=== PATIENT | female | born 1935 | race Caucasian/White ===

== ENCOUNTER 2018-05-21 02:08 | Emergency (ER) | payer OTHER, MEDICARE ==
[2018-05-21 02:16] VITALS: BMI 24.6
--- NOTE | 2018-05-21 02:28 | PDOC ---
History of Present Illness - General Chief Complaint: Injury Stated Complaint: FALL Time Seen by Provider: 05/21/18 02:28 - History of Present Illness Initial Comments: 05/21/18 03:14 Ms. Benoit is an 83 yo female w/ pmh of Hypothyroidism, HTN, HLD, depression, on aspirin and warfarin for unknown reason who presents to ED s/p fall at [facility] where patient is a resident. She went to the bathroom to use the bathroom without assistance and fell. Denies hitting her head or LOC. Patient is on warfarin and aspirin. Currently has a headache and neck pain. The patient denies chest pain, shortness of breath, headache and dizziness. Denies fever, chills, nausea, vomit, diarrhea and constipation. Denies dysuria, frequency, urgency and hematuria. Allergies: NKDA Past History - Suicide/Smoking/Psychosocial Hx Smoking History: Never smoked Have you smoked in the past 12 months: No Information on smoking cessation initiated: No Hx Alcohol Use: No Review of Systems - Review of Systems Comments:: 05/21/18 03:19 GENERAL/CONSTITUTIONAL: No fever or chills. No weakness. HEAD, EYES, EARS, NOSE AND THROAT: No change in vision. No ear pain or discharge. No sore throat. CARDIOVASCULAR: No chest pain or shortness of breath RESPIRATORY: No cough, wheezing, or hemoptysis. GASTROINTESTINAL: No nausea, vomiting, diarrhea or constipation. GENITOURINARY: No dysuria, frequency, or change in urination. MUSCULOSKELETAL: +Right hip pain. No neck or back pain. SKIN: No rash NEUROLOGIC: +Current headache, no vertigo, loss of consciousness, or change in strength/sensation. ENDOCRINE: No increased thirst. No abnormal weight change HEMATOLOGIC/LYMPHATIC: No anemia, easy bleeding, or history of blood clots. ALLERGIC/IMMUNOLOGIC: No hives or skin allergy. *Physical Exam - Vital Signs Last Vital Signs Temp Pulse Resp BP Pulse Ox 99.2 F 67 20 128/66 88 L 05/21/18 02:09 05/21/18 02:09 05/21/18 02:09 05/21/18 02:09 05/21/18 02:09 - Physical Exam Comments: 05/21/18 03:19 GENERAL: Awake, alert, and fully oriented, in no acute distress HEAD: No signs of trauma, normocephalic, atraumatic EYES: PERRLA, EOMI, sclera anicteric, conjunctiva clear ENT: Auricles normal inspection, hearing grossly normal, nares patent, oropharynx clear without exudates. Moist mucosa NECK: Normal ROM, supple, no lymphadenopathy, JVD, or masses LUNGS: No distress, speaks full sentences, clear to auscultation bilaterally HEART: Regular rate and rhythm, normal S1 and S2, no murmurs, rubs or gallops, peripheral pulses normal and equal bilaterally. ABDOMEN: Soft, nontender, normoactive bowel sounds. No guarding, no rebound. No masses EXTREMITIES: +Approx. 10cm ecchymosis noted to R hip. Otherwise normal inspection, Normal range of motion, no edema. No clubbing or cyanosis. NEUROLOGICAL: Cranial nerves II through XII grossly intact. Normal speech, no focal sensorimotor deficits SKIN: Warm, Dry, normal turgor, no rashes or lesions noted. ED Treatment Course - LABORATORY CBC & Chemistry Diagram: 05/21/18 03:45 05/21/18 03:45 Medical Decision Making - Medical Decision Making 05/21/18 06:00 Ms. Benoit is an 83 yo female w/ pmh as described who presents for evaluation after fall earlier today. Patient workup started including head/c-spine CT, EKG , and pelvic /chest XR as well as labs as below. Labs grossly wnl, EKG non- concerning, CXR / Pelvic XR / Head/C-spine CT all negative for acute process. Patient resting comfortably. Will discharge to home for further non-emergent outpatient evaluation. Laboratory Results - last 24 hr 05/21/18 05/21/18 05/21/18 03:45 03:45 03:45 WBC 8.4 RBC 4.29 Hgb 12.0 Hct 37.0 MCV 86.4 MCH 27.9 MCHC 32.4 RDW 17.5 H Plt Count 359 MPV 9.7 Absolute Neuts (auto) 6.8 Neutrophils % 80.7 Lymphocytes % 9.5 Monocytes % 6.9 Eosinophils % 2.5 Basophils % 0.4 Nucleated RBC % 0 PT with INR 23.60 H INR 2.09 H PTT (Actin FS) 40.2 H Sodium 144 Potassium 3.7 Chloride 108 H Carbon Dioxide 28 Anion Gap 8 BUN 20 H Creatinine 0.8 Creat Clearance w eGFR > 60 Random Glucose 106 Calcium 8.6 Total Bilirubin 0.3 AST 27 ALT 42 Alkaline Phosphatase 74 Creatine Kinase 62 Troponin I 0.03 Total Protein 5.7 L Albumin 3.1 L *DC/Admit/Observation/Transfer Diagnosis at time of Disposition: Fall Qualifiers: Encounter type: initial encounter Qualified Code(s): W19.XXXA - Unspecified fall, initial encounter - Discharge Dispostion Disposition: HOME - Referrals Referrals: Rianna Blas [Primary Care Provider] - - Patient Instructions Printed Discharge Instructions: How to Prevent Falls Additional Instructions: Please follow-up with primary care provider for further evaluation in 1-2 days. Return to ER if any pain, fever, chills, or other concerning symptoms. - Post Discharge Activity
--- NOTE | 2018-05-21 03:21 | PDOC ---
Attending Attestation - HPI HPI: 05/21/18 03:21 The patient is an 83-year-old female, DNR, with a past medical history of HTN, hyperlipidemia, hypothyroidism, and depression, who presents to the ED s/p fall today. The patient states that she got up to use the bathroom without assistance and lost her footing. She does not recall how she fell but denies any head trauma or loss of consciousness. She is now complaining of headache and neck pain. The patient reports frequency. The patient denies any fever, chills, nausea, vomiting, diarrhea, and abdominal pain. Denies any chest pain or shortness of breath. Allergies: NKA PCP: Dr. Blas - Physicial Exam PE: 05/21/18 03:34 GENERAL: Well developed, well nourished. Awake and alert. No acute distress. HEENT: Normocephalic, atraumatic. PERRLA, EOMI. No conjunctival pallor. Sclera are non- icteric. Moist mucous membranes. Oropharynx is clear. NECK: Supple. Full ROM. No JVD. Carotid pulses 2+ and symmetric, without bruits. No thyromegaly. No lymphadenopathy. CARDIOVASCULAR: Regular rate and rhythm. No murmurs, rubs, or gallops. Distal pulses are 2+ and symmetric. PULMONARY: No evidence of respiratory distress. Lungs clear to auscultation bilaterally. No wheezing, rales or rhonchi. ABDOMINAL: Soft. Non-tender. Non-distended. No rebound or guarding. No organomegaly. Normoactive bowel sounds. MUSCULOSKELETAL Normal range of motion at all joints. No bony deformities or tenderness. No CVA tenderness. EXTREMITIES: No cyanosis. No clubbing. No edema. No calf tenderness. SKIN: Warm and dry. Normal capillary refill. No rashes. No jaundice. NEUROLOGICAL: Alert, awake, appropriate. PSYCHIATRIC: Cooperative. Good eye contact. Appropriate mood and affect. <Jen May - Last Filed: 05/21/18 03:25> - Resident Resident Name: Jose Maria James - ED Attending Attestation I have performed the following: I have examined & evaluated the patient, The case was reviewed & discussed with the resident, I agree w/resident's findings & plan, Exceptions are as noted - Medical Decision Making 05/24/18 19:15 Pt treated and released <Sadiq Bates - Last Filed: 05/24/18 19:16> Attestations - Attestations 05/21/18 03:34 Documentation prepared by Jen May, acting as medical lab specialist for Sadiq Bates DO. <Jen May - Last Filed: 05/21/18 03:25>
[2018-05-21 04:07] LABS: BASO % 0.4 % (0-2.0); EOS % 2.5 % (0-4.5); LYMPH % 9.5 % (8-40); MCH 27.9 pg (25.7-33.7); MCHC 32.4 g/dl (32.0-36.0); MEAN CELL VOLUME 86.4 fl (80-96); MEAN PLT VOLUME 9.7 fl (7.5-11.1); MONO % 6.9 % (3.8-10.2); NEUT % 80.7 % (42.8-82.8); PLATELET COUNT 359 K/MM3 (134-434); RBC 4.29 M/mm3 (3.60-5.2); RDW 17.5 % (11.6-15.6); WHITE BLOOD COUNT 8.4 K/mm3 (4.0-10.0)
[2018-05-21 04:27] LABS: INR 2.09 (0.82-1.09); PROTHROMBIN TIME (PATIENT) 23.6 SEC (9.7-13.0)
[2018-05-21 04:30] LABS: ACTIVATED PTT 40.2 SECONDS (25.2-36.5)
[2018-05-21 04:38] LABS: ALBUMIN 3.1 g/dl (3.4-5.0); ANION GAP 8 (8-16); BILIRUBIN,TOTAL 0.3 mg/dL (0.2-1.0); BLOOD UREA NITROGEN 20 mg/dL (7-18); CALCIUM 8.6 mg/dL (8.5-10.1); CHLORIDE 108 mmol/L (98-107); CO2 28 mmol/L (21-32); CREATININE 0.8 mg/dL (0.55-1.02); GLUCOSE,RANDOM 106 mg/dL (74-106); POTASSIUM 3.7 mmol/L (3.5-5.1); SGOT/AST 27 U/L (15-37); SGPT/ALT 42 U/L (12-78); SODIUM 144 mmol/L (136-145); TOT PROT 5.7 g/dl (6.4-8.2)
[2018-05-21 04:41] LABS: ALK PHOS 74 U/L (45-117)
--- NOTE | 2018-05-21 08:45 | EKG ---
Test Reason : Blood Pressure : / mmHG Vent. Rate : 064 BPM Atrial Rate : 258 BPM P-R Int : 000 ms QRS Dur : 096 ms QT Int : 490 ms P-R-T Axes : 000 054 118 degrees QTc Int : 505 ms ATRIAL FIBRILLATION NONSPECIFIC ST AND T WAVE ABNORMALITY PROLONGED QT ABNORMAL ECG NO PREVIOUS ECGS AVAILABLE Confirmed by VAHE MCGREGOR MD ([id number]) on 05/21/2018 8:45:04 AM Referred By: Confirmed By:VAHE MCGREGOR MD
[2018-05-21 08:52] VITALS: TEMP 98.1
[2018-05-21 08:53] VITALS: BP 145/80; PULSE 72
== END 2018-05-21 11:15 ==
LOC: JER 02:08
DX: S70.01XA Contusion of right hip, initial encounter (principal); W18.39XA Other fall on same level, initial encounter; Y93.01 Activity, walking, marching and hiking; Y92.091 Bathroom in other non-institutional residence as the place of occurrence of the external cause; Y99.8 Other external cause status; I10 Essential (primary) hypertension; E78.5 Hyperlipidemia, unspecified; E03.9 Hypothyroidism, unspecified; F32.9 Major depressive disorder, single episode, unspecified; Z79.01 Long term (current) use of anticoagulants; Z79.82 Long term (current) use of aspirin
CPT/HCPCS: 36415; 70450-TC; 71045-TC-FY; 72125-TC; 73523-TC-FY; 80053; 82550; 84484; 85025; 85610; 85730; 86850; 86900; 86901; 93005; 93010; 99283-25